=== PATIENT | male | born 1965 | race Asian ===

== ENCOUNTER 2021-02-21 13:51 | Inpatient (IN) | payer MEDICAID ==
[~2021-02-21] VITALS: Ht 175.3 cm; Wt 76.7 kg
[2021-02-21 13:55] VITALS: BP 155/95
--- NOTE | 2021-02-21 14:02 | NUR ---
PATIENT AMBULATED TO BED 11.
--- NOTE | 2021-02-21 14:21 | NUR ---
55YO M C/O BLACK STOOLS X 3 DAYS. PT REPORTS TAKING EXCEDRINE 3-4 PILLS /DAYS X 2 YEARS FOR LEG PAIN AND MIGRAINE. DENIES VOMITING, DIARRHEA, ABDOMINAL PAIN. IN ED, VSS. ABDOMEN SOFT, NONTENDER WITH NORMOACTIVE BS. PT CHANGED TO HOSP GOWN. ERMD MADE AWARE OF PT STATUS. PMH: DM, HTN, HLD MEDS: METFORMIN, ATENOLOL NKA
--- NOTE | 2021-02-21 15:28 | NUR ---
IV 20 GA RT/AC, blood sent to lab.
[2021-02-21 15:40] LABS: HEMOGLOBIN 8.9 g/dL (12.0-18.0); MEAN CORPUSCULAR HEMOGLOBIN 31 pg (27-31); MEAN CORPUSCULAR HGB CONC 32 g/dL (33-37); PLATELET COUNT (AUTO) 627 K/uL (140-450); RED BLOOD CELL COUNT(AUTO) 2.86 MIL/uL (4.20-6.10); RED CELL DISTRIBUTION WIDTH 17.1 % (11.6-13.7)
[2021-02-21 15:50] LABS: ALBUMIN 3.7 g/dL (3.4-5.0); ANION GAP 14.3 (8-16); CARBON DIOXIDE 25.1 mmol/L (21-32); CREATININE 1.3 mg/dL (0.6-1.3); POTASSIUM 4.4 mmol/L (3.5-5.1); TOTAL BILIRUBIN 0.1 mg/dL (0.0-1.0)
[2021-02-21 15:50] LABS: PROTHROMBIN TIME 10.4 secs (10.8-13.4)
[2021-02-21 16:34] LABS: WHITE BLOOD COUNT (AUTO) 46.9 K/uL (4.8-10.8)
[2021-02-21 16:53] LABS: BLASTS, MANUAL % 3 % (0-0); EOSINOPHILS % (MANUAL) 2 % (0-4); LYMPHOCYTES % (MANUAL) 11 % (20-46); MONOCYTES % (MANUAL) 2 % (5-12); MYELOCYTES % 1 % (0-0); PROMYELOCYTES % 5 % (0-0)
[2021-02-21] MEDS ORDERED: POTASSIUM CHLORIDE 10 MEQ TABER PO PRN (18:20)
[2021-02-21] MEDS ORDERED: HYDROcodone/APAP 5/325 MG 1 TAB TAB PO PRN (18:20)
[2021-02-21] MEDS ORDERED: MORPHINE SULFATE 2 MG/ML SYR IVP PRN (18:20)
[2021-02-21] MEDS ORDERED: DOCUSATE SODIUM 100 MG GELCAP PO PRN (18:20)
[2021-02-21] MEDS ORDERED: SODIUM PHOS / POTASSIUM PHOS 1 PKT PDR PO PRN (18:20)
[2021-02-21] MEDS ORDERED: ZOLPIDEM 5 MG TAB PO PRN (18:20)
[2021-02-21] MEDS ORDERED: ACETAMINOPHEN 325 MG TAB PO PRN (18:20)
[2021-02-21] MEDS ORDERED: ONDANSETRON 4 MG/2 ML VIAL IVP PRN (18:20)
[2021-02-21] MEDS ORDERED: MAG SULF 2000 MG/WATER PREMIX 50 ML IV PRN (18:20)
[2021-02-21] MEDS ORDERED: LORazepam 2 MG/ML VIAL IM/IVP PRN (18:20)
[2021-02-21] MEDS ORDERED: hydrALAZINE 20 MG/ML VIAL IVP ONE (18:25)
[2021-02-21] MEDS ORDERED: DEXTROSE 50% 50 ML SYR IVP PRN (18:30)
[2021-02-21] MEDS ORDERED: INSULIN LISPRO SLIDING SCALE 100 UNITS/ML VIAL SUBQ PRN (18:30)
[2021-02-21] MEDS: NACL 0.9% 1,000 ML IV SCH (18:51)
--- NOTE | 2021-02-21 18:53 | NUR ---
URINE SPECIMEN WALKED TO LAB
--- NOTE | 2021-02-21 18:54 | NUR ---
MRSA SWAB DONE. WALKED TO LAB.
[2021-02-21 19:06] LABS: APPEARANCE,URINE CLEAR (CLEAR); BILIRUBIN,URINE NEGATIVE (NEGATIVE); BLOOD, URINE NEGATIVE (NEGATIVE); COLOR,URINE YELLOW (YELLOW); LEUKOCYTE ESTERASE ,URINE NEGATIVE (NEGATIVE); NITRITE, URINE NEGATIVE (NEGATIVE); UGLUCOSE NEGATIVE (NEGATIVE)
[2021-02-21 19:20] LABS: BARBITURATE, URINE NEGATIVE ng/ml (NEG <=200); BENZODIAZEPINE, URINE NEGATIVE ng/mL (NEG <=200); CANNABINOID, URINE NEGATIVE ng/mL (NEG <=50); COCAINE, URINE NEGATIVE ng/mL (NEG <=300); OPIATE, URINE NEGATIVE ng/mL (NEG <=2000); PHENCYCLIDINE SCREEN,URINE NEGATIVE ng/mL (NEG <=25)
--- NOTE | 2021-02-21 19:21 | NUR ---
REPORT GIVEN TO ARTURO CORTEZ. ALL CARES TRANSFERRED AT THIS TIME.
--- NOTE | 2021-02-21 19:21 | NUR ---
RECEIVED REPORT FROM ARTURO MAY FOR CONTINUITY OF CARE
--- NOTE | 2021-02-21 19:25 | NUR ---
Patient appears to be resting comfortably in bed- semi fowlers. Vital Signs within normal limits. Respirations even and unlabored. AAOx4. Iv on the left hand is flushable with 10ml of NS. Safety measures are in place, will continue to monitor patient.
[2021-02-21 19:36] LABS: FREE T4 (FREE THYROXINE) 1.06 ng/dL (0.76-1.46); PHOSPHORUS 3.9 mg/dL (2.5-4.9); THYROID STIMULATING HORMONE 1.01 uIU/mL (0.34-3.74)
[2021-02-21] MEDS ORDERED: ATEN25TA7 PO (19:39)
[2021-02-21] MEDS ORDERED: METF-988 PO (19:39)
[2021-02-21] MEDS ORDERED: hydrALAZINE 20 MG/ML VIAL IVP PRN (19:40)
--- NOTE | 2021-02-21 20:10 | NUR ---
ATTEMPTED TO CALL REPORT FOR RN-- NO ANSWER AT THIS TIME
--- NOTE | 2021-02-21 20:25 | NUR ---
ATTEMPTED TO CALL REPORT FOR RN-- NO ANSWER AT THIS TIME
--- NOTE | 2021-02-21 20:46 | NUR ---
called RN for report-- answered but was providing care for a patient, was told to call back in 10mins.
--- NOTE | 2021-02-21 20:59 | NUR ---
Patient will be admitted to care of Marielle PATINO. Admited to Telemetry. Will go to room 104a. Belongings list completed. Report to Vicky MORRIS.
--- NOTE | 2021-02-21 21:30 | NUR ---
RECEIVED REPORT AND PT FROM ED DIEGO RN FOR ADMIT TO MS/T. PT ARRIVED AA0X4. NO APPARENT S/S OF ACUTE DISTRESS. BREATHING EVEN AND UNLABORED ON RA WITH O2 SAT OF 99%. NO C/O CP, SOB OR PAIN. F AC 20G INTACT/PATENT. POC AND WHITE COMMUNICATION BOARD UPDATED. BED IN LOW/LOCKED POSITION. CALL LIGHT WITHIN REACH. PT ENCOURAGED TO CALL FOR ANY NEEDS/ASSISTANCE. WILL CONTINUE TO MONITOR.
[2021-02-21] MEDS: BLOOD GLUCOSE MONITORING 1 DEV DEV FS SCH (21:42)
[2021-02-21 21:51] VITALS: BP 153/87
[2021-02-22] VITALS: BP 150/77
[2021-02-22 04:00] VITALS: BP 139/97
[2021-02-22] MEDS: NACL 0.9% 1,000 ML IV SCH ×2 (04:20→14:21)
[2021-02-22 06:48] LABS: PROTHROMBIN TIME 10.7 secs (10.8-13.4)
[2021-02-22 06:54] LABS: ALBUMIN 3.4 g/dL (3.4-5.0); ANION GAP 10.6 (8-16); MAGNESIUM 2.1 mg/dL (1.8-2.4); POTASSIUM 3.6 mmol/L (3.5-5.1); TOTAL BILIRUBIN 0.3 mg/dL (0.0-1.0)
--- NOTE | 2021-02-22 06:57 | NUR ---
REPORT GIVEN TO ERIC MORRIS FOR CONTINUITY OF CARE. PT SITTING UP AAOX4. NO APPARENT S/S OF ACUTE DISTRESS. BREATHING EVEN AND UNLABORED. BED IN LOW/LOCKED POSITION. CALL LIGHT WITHIN REACH. ALL NEEDS MET AT THIS TIME.
[2021-02-22 07:01] LABS: HEMOGLOBIN 8.6 g/dL (12.0-18.0); MEAN CORPUSCULAR HEMOGLOBIN 31 pg (27-31); MEAN CORPUSCULAR HGB CONC 32 g/dL (33-37); MEAN CORPUSCULAR VOLUME 98.9 fL (80-94); PLATELET COUNT (AUTO) 577 K/uL (140-450); RED BLOOD CELL COUNT(AUTO) 2.73 MIL/uL (4.20-6.10)
--- NOTE | 2021-02-22 07:21 | NUR ---
RECEIVED CHANGE OF SHIFT REPORT AT BEDSIDE FOR CONTINUITY OF CARE. REVIEWED AND WILL CONTINUE WITH POC. PT CONDITION IS STABLE. PT IS CURRENTLY SLEEPING. WILL CONTINUE TO MONITOR.
[2021-02-22] MEDS: BLOOD GLUCOSE MONITORING 1 DEV DEV FS SCH ×4 (07:45→21:01)
[2021-02-22 08:00] VITALS: BP 166/88
[2021-02-22] MEDS: atenoloL 25 MG TAB PO SCH (08:27)
--- NOTE | 2021-02-22 08:32 | NUR ---
PATIENT HAS BEEN SCREENED AND CATEGORIZED LOW NUTRITION RISK. PATIENT WILL BE SEEN WITHIN 7 DAYS OF ADMISSION. 02/28/[address]
[2021-02-22 09:12] LABS: URIC ACID 9.5 mg/dL (2.6-7.2)
--- NOTE | 2021-02-22 09:20 | NUR ---
PT CONDITION IS STABLE. PT IS CURRENTLY SLEEPING. WILL CONTINUE TO MONITOR CONDITION.
[2021-02-22 10:01] LABS: WHITE BLOOD COUNT (AUTO) 41.3 K/uL (4.8-10.8)
[2021-02-22 10:02] LABS: EOSINOPHILS % (MANUAL) 2 % (0-4); LYMPHOCYTES % (MANUAL) 8 % (20-46); METAMYELOCYTES % 5 % (0-0); MONOCYTES % (MANUAL) 4 % (5-12); MYELOCYTES % 5 % (0-0); PROMYELOCYTES % 1 % (0-0)
--- NOTE | 2021-02-22 10:11 | NUR ---
REPORTED TO DR. BOUCHER RE, PT'S LATEST WBC 41.3. PER DR. BOUCHER, DR. PEOPLES WILL SEE PT TOMORROW.
--- NOTE | 2021-02-22 11:30 | NUR ---
PT IS AWAKE AND USING HIS CELL PHONE. PT DENIES PAIN AT THIS TIME. PT IS ON IVF PER MD ORDER. BREATHIN ON RA WITH NORMAL, UNLABORED BREATHING.
[2021-02-22 12:00] VITALS: BP 145/91
[2021-02-22] MEDS ORDERED: diphenhydrAMINE 50 MG/ML VIAL ONE (12:34)
[2021-02-22] MEDS ORDERED: MIDAZOLAM 5 MG/5 ML VIAL ONE (12:34)
[2021-02-22] MEDS ORDERED: fentaNYL citrate 0.05 MG/ML VIAL ONE (12:34)
[2021-02-22] MEDS ORDERED: SODIUM PHOSPHATE 118 ML ENEM RC ONE (12:55)
[2021-02-22] MEDS ORDERED: MIDAZOLAM 2 MG/2 ML VIAL IVP ONE (12:55)
[2021-02-22] MEDS ORDERED: fentaNYL citrate 0.05 MG/ML VIAL IVP ONE (12:55)
[2021-02-22] MEDS ORDERED: bisacodyL 5 MG TABEC PO ONE (12:55)
[2021-02-22 13:19] LABS: URINE TOTAL PROTEIN 0.9 mg/dL (0-12)
--- NOTE | 2021-02-22 13:25 | NUR ---
PT CONDITION IS STABLE. PT IS TAKING A NAP. WILL CONTINUE TO MONITOR.
[2021-02-22] MEDS ORDERED: bisacodyL 5 MG TABEC PO PRN (15:15)
--- NOTE | 2021-02-22 15:32 | NUR ---
PT HAS FAMILY AT BEDSIDE. PT DENIES PAIN AT THIS TIME. PT CONDITION IS STABLE. WILL CONTINUE TO MONITOR.
[2021-02-22 16:00] VITALS: BP 161/98
--- NOTE | 2021-02-22 17:15 | NUR ---
PT IS AWAKE AND USING CELL PHONE. PT DENIES PAIN OR DISCOMFORT. WILL CONTINUE TO MONITOR.
--- NOTE | 2021-02-22 19:10 | NUR ---
RECEIVED REPORT FROM ERIC MORRIS FOR CONTINUITY OF CARE. PT SITTING UP AAOX4. NO APPARENT S/S OF ACUTE DISTRESS. BREATHING EVEN AND UNLABORED ON RA WITH O2 SAT OF 100%. NO C/O CP, SOB OR PAIN. R AC 20G INTACT/PATENT. POC AND WHITE COMMUNICATION BOARD UPDATED. BED IN LOW/LOCKED POSITION. CALL LIGHT WITHIN REACH. PT ENCOURAGED TO CALL FOR ANY NEEDS/ASSISTANCE. WILL CONTINUE TO MONITOR.
--- NOTE | 2021-02-22 19:33 | NUR ---
GAVE CHANGE OF SHIFT REPORT TO NIGHT NURSE AT BEDSIDE FOR CONTINUITY OF CARE. DISCUSSED POC. PT CONDITION IS STABLE.
[2021-02-22 20:00] VITALS: BP 182/97
[2021-02-22] MEDS ORDERED: SUPREP BOWEL PREP KIT 354 ML SOLN.RECON PO ONE (21:00)
[2021-02-23] VITALS: BP 144/76
[2021-02-23] MEDS: NACL 0.9% 1,000 ML IV SCH ×3 (00:20→20:20)
[2021-02-23 04:00] VITALS: BP 152/93
[2021-02-23 07:05] LABS: PROTHROMBIN TIME 10.5 secs (10.8-13.4)
[2021-02-23 07:08] LABS: ANION GAP 13.6 (8-16); CARBON DIOXIDE 24.8 mmol/L (21-32); POTASSIUM 3.4 mmol/L (3.5-5.1)
[2021-02-23 07:09] LABS: ALBUMIN 3.9 g/dL (3.4-5.0); HEMATOCRIT 30.6 % (36-52); HEMOGLOBIN 9.7 g/dL (12.0-18.0); MAGNESIUM 2.2 mg/dL (1.8-2.4); MEAN CORPUSCULAR HEMOGLOBIN 31 pg (27-31); MEAN CORPUSCULAR HGB CONC 32 g/dL (33-37); MEAN CORPUSCULAR VOLUME 98.7 fL (80-94); PLATELET COUNT (AUTO) 658 K/uL (140-450); RED CELL DISTRIBUTION WIDTH 17.6 % (11.6-13.7); TOTAL BILIRUBIN 0.4 mg/dL (0.0-1.0)
--- NOTE | 2021-02-23 07:15 | NUR ---
RECEIVED CHANGE OF Addendum: 02/23/21 at 0737 by Coty Ahumada RN RN RECEIVED CHANGE OF SHIFT REPORT FROM NIGHT NURSE AT BEDSIDE FOR CONTINUITY OF CARE. PT CONDITION IS STABLE WITH IVF RUNNING PER MD ORDER. PT DENIES PAIN OR DISCOMFORT AT THIS TIME. SKIN IS WARM, DRY, AND INTACT. WILL CONTINUE TO MONITOR.
--- NOTE | 2021-02-23 07:38 | NUR ---
NIGHT NURSE REPORTS BG IS 122. NO INSULIN COVERAGE NEEDED PER SLIDING SCALE.
[2021-02-23] MEDS: BLOOD GLUCOSE MONITORING 1 DEV DEV FS SCH ×4 (07:42→21:55)
[2021-02-23 08:00] VITALS: BP 154/95
[2021-02-23] MEDS: atenoloL 25 MG TAB PO SCH (08:21)
[2021-02-23] MEDS: NIFEdipine 30 MG TABER PO SCH (08:22)
--- NOTE | 2021-02-23 08:26 | NUR ---
ADMINISTERED K-DUR FOR POTASSIUM LEVEL OF 3.4 PER MD ORDER. WILL CONTINUE TO MONITOR.
[2021-02-23] MEDS ORDERED: fentaNYL citrate 0.05 MG/ML VIAL ONE (08:57)
[2021-02-23] MEDS ORDERED: MIDAZOLAM 5 MG/5 ML VIAL ONE (08:57)
[2021-02-23] MEDS ORDERED: diphenhydrAMINE 50 MG/ML VIAL ONE (08:57)
--- NOTE | 2021-02-23 09:00 | NUR ---
PT PICKED UP FOR COLONOSCOPY PROCEDURE BY TECH. CONDITION IS STABLE.
[2021-02-23 09:11] LABS: WHITE BLOOD COUNT (AUTO) 47.2 K/uL (4.8-10.8)
[2021-02-23 09:13] LABS: EOSINOPHILS % (MANUAL) 1 % (0-4); LYMPHOCYTES % (MANUAL) 2 % (20-46); METAMYELOCYTES % 2 % (0-0); MONOCYTES % (MANUAL) 2 % (5-12); MYELOCYTES % 4 % (0-0)
--- NOTE | 2021-02-23 09:30 | NUR ---
PT STILL GETTING COLONOSCOPY DONE.
[2021-02-23] MEDS: MIDAZOLAM 2 MG/2 ML VIAL IVP ONE ×2 (10:13→11:42)
[2021-02-23] MEDS: fentaNYL citrate 0.05 MG/ML VIAL IVP ONE ×2 (10:14→11:42)
--- NOTE | 2021-02-23 10:45 | NUR ---
PT ARRIVED TO UNIT FROM COLONOSCOPY. OR TECH REPORTS PT HAS COLONOSCOPY WITH POLYPECTOMY AND 3 COLON POLYPS WERE FOUND AND SENT FOR PATHOLOGY. PT WAS GIVEN VERSED 3 MG AND FENTANYL 100MG. PT CONDITION IS STABLE. WILL CONTINUE TO MONITOR.
--- NOTE | 2021-02-23 11:30 | NUR ---
PT CONDITION IS STABLE. PT IS ON RA AND DENIES PAIN AT THIS TIME. PT ASKED IF HE CAN EAT AND I EDUCATED ON HOW MD PLACED ORDER FOR REGULAR DIET. FOLLOWED-UP WITH DR. BOUCHER. AWAITING ORDER.
[2021-02-23 12:00] VITALS: BP 149/82
[2021-02-23] MEDS: PIPERACILLIN/TAZOBACTAM 2.25 GM in DEXTROSE 5% 50 ML IV SCH ×3 (12:07→23:57)
--- NOTE | 2021-02-23 13:15 | NUR ---
PT IS EATING FOOD BROUGHT IN BY FRIEND. FRIEND LEFT AFTER BRINGING FOOD. WILL CONTINUE TO MONITOR PT CONDITION. PT IS CURRENTLY STABLE AND RUNNING IVF PER MD ORDER. PT DENIES ANY RXN AT THIS TIME.
--- NOTE | 2021-02-23 15:14 | NUR ---
PT CONDITION IS STABLE. PT IS CURRENTLY TAKING A NAP. PT DOES NOT APPEAR TO BE IN PAIN OR DISTRESS. PT IS RUNNING IVF PER MD ORDER. BREATHING IS NORMAL AND UNLABORED. SKIN IS WARM, DRY, AND INTACT. WILL CONTINUE TO MONITOR.
[2021-02-23 16:00] VITALS: BP 129/70
--- NOTE | 2021-02-23 17:20 | NUR ---
PT CONDITION IS STABLE. PT IS ON THE PHONE AND DENIES ANY PAIN OR DISCOMFORT. WILL CONTINUE WITH FREQ MONITORING.
--- NOTE | 2021-02-23 19:24 | NUR ---
GAVE CHANGE OF SHIFT REPORT TO NIGHT NURSE AT BEDSIDE FOR CONTINUITY OF CARE. POC DISCUSSED. PT CONDITION IS STABLE.
--- NOTE | 2021-02-23 19:25 | NUR ---
RECD. RESTING IN BED, AWAKE, A/OX4 RESPIRATION EVEN AND UNLABORED. IV OF NS AT 100 ML/HR INFUSING, LEFT AC G20. INDEPENDENT, AMBULATORY TO THE BR. DENIES DIARRHEA. MEDICATIONS FOR THE SHIFT DISCUSSED WITH PATIENT/ VERBALIZED UNDERSTANDING. DENIES PAIN 0/10.
--- NOTE | 2021-02-23 20:30 | NUR ---
AMBULATED TO BR TO HAVE BM. PUT ON A HAT. AWARE OF COLLECTION OF STOOL FOR C-DIFF TEST.
--- NOTE | 2021-02-23 21:00 | NUR ---
BACK IN BED, UNABLE TO HAVE BM.
--- NOTE | 2021-02-23 21:55 | NUR ---
BLOOD SUGAR CHECKED - 137. SNACK FOR THE NIGHT GIVEN.
--- NOTE | 2021-02-23 22:04 | NUR ---
UNABLE TO SLEEP, MEDICATED WITH AMBIEN PER MD ORDER.
--- NOTE | 2021-02-23 23:20 | NUR ---
Patient's Plan of Care was discussed and reviewed with LEGAL ARBITRATOR: RADHA BENOIT
--- NOTE | 2021-02-23 23:57 | NUR ---
STILL AWAKE IN BED. ZOSYN IVPB ADMINISTERED BY ARTURO ALANIS.
--- NOTE | 2021-02-24 | NUR ---
STILL AWAKE, CALIME HE HAS A PANIC ATTACK BUT REFUSED ATIVAN, AFRAID OF THE MEDICATION SIDE EFFECT.
--- NOTE | 2021-02-24 03:00 | NUR ---
JUST WOKE UP FROM SLEEP, STATED HE WAS ABLE TO SLEEP FOR SOME HOURS. ADVISED TO GO BACK TO SLEEP.
[2021-02-24 04:00] VITALS: BP 121/75
[2021-02-24] MEDS: PIPERACILLIN/TAZOBACTAM 2.25 GM in DEXTROSE 5% 50 ML IV SCH ×2 (05:38→11:42)
[2021-02-24] MEDS: NACL 0.9% 1,000 ML IV SCH (06:24)
[2021-02-24] MEDS: BLOOD GLUCOSE MONITORING 1 DEV DEV FS SCH ×2 (06:45→11:30)
--- NOTE | 2021-02-24 07:30 | NUR ---
ENDORSED TO CHARGE NURSE GUAN FOR CONTINUITY OF CARE.
[2021-02-24 07:34] LABS: HEMOGLOBIN 8.7 g/dL (12.0-18.0); MEAN CORPUSCULAR HEMOGLOBIN 31 pg (27-31); MEAN CORPUSCULAR HGB CONC 31 g/dL (33-37); MEAN CORPUSCULAR VOLUME 100.2 fL (80-94); PLATELET COUNT (AUTO) 578 K/uL (140-450); RED CELL DISTRIBUTION WIDTH 18.5 % (11.6-13.7)
[2021-02-24 08:00] LABS: ALBUMIN 3.2 g/dL (3.4-5.0); ANION GAP 12.5 (8-16); CARBON DIOXIDE 25.3 mmol/L (21-32); MAGNESIUM 2.1 mg/dL (1.8-2.4); POTASSIUM 3.8 mmol/L (3.5-5.1); TOTAL BILIRUBIN 0.2 mg/dL (0.0-1.0)
--- NOTE | 2021-02-24 08:00 | NUR ---
RECEIVED REPORT FROM PROPERTY INSURANCE CLAIMS EXAMINER FOR CONTINUITY OF CARE. PATIENT ALERT AWAKE ORIENTED X4, NOT IN DISTRESS NOTED. PATIENT DENIES PAIN. ON IVF ON GOING AND INFUSING WELL. PATIENT VERBALIZED THAT HE WANTS TO GO HOME. ISOLATION PROTOCOL OBSERVED. NO DIRRHEA NOTED. WILL CONTINUE TO MONITOR.
[2021-02-24] MEDS: NIFEdipine 30 MG TABER PO SCH (08:39)
[2021-02-24] MEDS: atenoloL 25 MG TAB PO SCH (08:41)
[2021-02-24 08:45] LABS: WHITE BLOOD COUNT (AUTO) 41.5 K/uL (4.8-10.8)
--- NOTE | 2021-02-24 09:00 | NUR ---
SEEN BY DR. MARQUEZ AND DISCUSSED THE PLAN OF CARE.
[2021-02-24 09:26] LABS: METAMYELOCYTES % 2 % (0-0); MYELOCYTES % 3 % (0-0)
[2021-02-24 09:27] LABS: EOSINOPHILS % (MANUAL) 1 % (0-4); LYMPHOCYTES % (MANUAL) 8 % (20-46); MONOCYTES % (MANUAL) 7 % (5-12)
[2021-02-24] MEDS ORDERED: AMOX-999 PO (10:59)
[2021-02-24] MEDS ORDERED: LEVO750T51 PO (10:59)
[2021-02-24] MEDS ORDERED: FERR325E14 PO (11:00)
[2021-02-24 12:00] VITALS: BP 141/76
[2021-02-24] MEDS ORDERED: ZOLP5TAB1 PO (12:51)
--- NOTE | 2021-02-24 13:00 | NUR ---
PATIENT DC HOME AMBULATORY WITH DC INSTRUCTION AND PRESCRIPTION GIVEN AND VERBALIZED UNDERSTANDING. IN STABLE CONDITION
== END 2021-02-24 14:13 | disposition home or self-care (01) | DRG 720 ==
LOC: MED 13:51 → MTU 18:23
PROVIDERS: ADMIT Family Medicine; ATTEND Family Medicine
PROC: 0DBL8ZZ Excision of Transverse Colon, Via Natural or Artificial Opening Endoscopic (ICD-10-PCS; 2021-02-22)
PROC: 0DB68ZX Excision of Stomach, Via Natural or Artificial Opening Endoscopic, Diagnostic (ICD-10-PCS; 2021-02-23)
PROC: 0DB48ZX Excision of Esophagogastric Junction, Via Natural or Artificial Opening Endoscopic, Diagnostic (ICD-10-PCS; principal; 2021-02-23 08:30)
DX: A41.9 Sepsis, unspecified organism (principal); N17.0 Acute kidney failure with tubular necrosis; K25.4 Chronic or unspecified gastric ulcer with hemorrhage; E11.9 Type 2 diabetes mellitus without complications; D50.0 Iron deficiency anemia secondary to blood loss (chronic); D46.9 Myelodysplastic syndrome, unspecified; E78.00 Pure hypercholesterolemia, unspecified; K29.71 Gastritis, unspecified, with bleeding; E78.5 Hyperlipidemia, unspecified; K76.0 Fatty (change of) liver, not elsewhere classified; I10 Essential (primary) hypertension; K63.5 Polyp of colon; M47.816 Spondylosis without myelopathy or radiculopathy, lumbar region; G43.909 Migraine, unspecified, not intractable, without status migrainosus; Z83.3 Family history of diabetes mellitus; Z87.891 Personal history of nicotine dependence; Z80.3 Family history of malignant neoplasm of breast; Z80.0 Family history of malignant neoplasm of digestive organs
CPT/HCPCS: 36415; 71045; 76770; 80053; 80305; 81003; 82150; 82272; 82570; 82948; 83036; 83615; 83690; 83735; 83880; 84100; 84300; 84439; 84443; 84484; 84550; 85025; 85379; 85384; 85610; 85651; 85730; 86140; 87040; 87081; 88189; 88305; 88312; 88313; 88342; 96374; 99285; J0360; J1200; J2250; J2543; J3010; J7030; J7060; Q0092

== ENCOUNTER 2021-03-03 11:09 | Emergency (ER) | payer MEDICAID ==
[~2021-03-03] VITALS: Ht 175.3 cm; Wt 76.7 kg
[~2021-03-03 11:09] MED LIST: AMOX-999 PO; ATEN25TA7 PO; FERR325E14 PO; LEVO750T51 PO; METF-988 PO; ZOLP5TAB1 PO
[2021-03-03 11:17] VITALS: BP 146/92
--- NOTE | 2021-03-03 11:38 | NUR ---
Pt presents to ED for re-check. Pt was admitted to [facility] 02/21/21 to 02/24/21 for rectal bleeding and sepsis. Pt does not have a PCP, but on according to pt discharge paperwork, pt needed a repeat CBC and BMP within 7 days. Pt denies any rectal bleeding. Denies pain, 0/10. Pt a&ox4. GCS 15. Pt states he has dizziness but dizziness is due to a side effect from medications he is currently taking.
--- NOTE | 2021-03-03 11:43 | NUR ---
Phelb at bedside
[2021-03-03 11:50] LABS: HEMATOCRIT 30.3 % (36-52); HEMOGLOBIN 9.4 g/dL (12.0-18.0); MEAN CORPUSCULAR HEMOGLOBIN 30 pg (27-31); MEAN CORPUSCULAR HGB CONC 31 g/dL (33-37); MEAN CORPUSCULAR VOLUME 96.6 fL (80-94); PLATELET COUNT (AUTO) 770 K/uL (140-450); RED BLOOD CELL COUNT(AUTO) 3.13 MIL/uL (4.20-6.10); RED CELL DISTRIBUTION WIDTH 17.2 % (11.6-13.7)
[2021-03-03 11:57] LABS: CARBON DIOXIDE 26.6 mmol/L (21-32); CREATININE 1.3 mg/dL (0.6-1.3); POTASSIUM 4.6 mmol/L (3.5-5.1)
[2021-03-03 11:59] LABS: WHITE BLOOD COUNT (AUTO) 53.1 K/uL (4.8-10.8)
[2021-03-03 12:01] LABS: EOSINOPHILS % (MANUAL) 1 % (0-4); MONOCYTES % (MANUAL) 8 % (5-12)
[2021-03-03 12:04] LABS: LYMPHOCYTES % (MANUAL) 9 % (20-46); METAMYELOCYTES % 2 % (0-0)
[2021-03-03 12:05] LABS: MYELOCYTES % 2 % (0-0)
--- NOTE | 2021-03-03 12:43 | NUR ---
MD Nelson evaluating pt at bedside
--- NOTE | 2021-03-03 13:05 | NUR ---
Patient discharged with v/s stable. Written and verbal after care instructions given and explained. Patient verbalized understanding. Ambulatory with steady gait. All questions addressed prior to discharge. Advised to follow up with his appointment at [facility].
== END 2021-03-03 13:05 | disposition home or self-care (01) ==
LOC: MED 11:09
DX: R79.89 Other specified abnormal findings of blood chemistry (principal); D64.9 Anemia, unspecified; D72.829 Elevated white blood cell count, unspecified; J45.909 Unspecified asthma, uncomplicated; E11.9 Type 2 diabetes mellitus without complications; I10 Essential (primary) hypertension; Z79.899 Other long term (current) drug therapy; Z79.2 Long term (current) use of antibiotics
CPT/HCPCS: 36415; 80048; 85025; 99283

== ENCOUNTER 2023-11-29 22:28 | Emergency (ER) | payer MEDICAID, OTHER ==
[~2023-11-29] VITALS: Ht 175.3 cm; Wt 79.4 kg
[~2023-11-29 22:28] MED LIST changes: -LEVO750T51 PO; +LEVO750T75 PO; +METF-1243 PO; -METF-988 PO
[2023-11-29 22:37] VITALS: BP 170/101; PULSE 109; RESP 16; TEMP 97.6; O2SAT 98
[2023-11-29 22:50] VITALS: BP 170/101; PULSE 109; RESP 16; TEMP 97.6; O2SAT 97
[2023-11-29 23:00] VITALS: O2SAT 97
== END 2023-11-29 23:56 | disposition home or self-care (01) ==
LOC: MED 22:28
DX: R04.0 Epistaxis (principal); J45.909 Unspecified asthma, uncomplicated; E11.9 Type 2 diabetes mellitus without complications; I10 Essential (primary) hypertension; Z79.4 Long term (current) use of insulin; Z79.899 Other long term (current) drug therapy
CPT/HCPCS: 99281